=== PATIENT | male | born 1945 | race Caucasian/White ===

== ENCOUNTER → 2017-10-22 | Outpatient (CLI) | payer OTHER | LOC: ULTRA 10-12 16:43 | DX: M79.89 Other specified soft tissue disorders (principal); M79.662 Pain in left lower leg; M79.661 Pain in right lower leg; R60.9 Edema, unspecified ==

== ENCOUNTER → 2018-05-29 | Outpatient (CLI) | payer OTHER ==
--- NOTE | 2018-05-29 12:28 | EXE ---
[facility] [place] [address] STRESS ECHOCARDIOGRAM Name: VIVIENNE DIXON JR Room #: REG HERMELINDO [place]#: [id number] Admission: 05/29/18 Attend Phys: Milan Carr, Discharge: Date of : 49 Date of Service: 05/29/18 1228 Report #: [id number] THIS REPORT FOR: //name// APPROVED REPORT Study performed: 05/29/2018 11:08:05 Exam: Stress Echocardiogram Indication: CAD s/p CABG, Hypertension, Hyperlipidemia Patient Location: Out-Patient Stress Nurse: Starr Walden RN Room #: Echo lab 2 Status: routine Ht: 6 ft 1 in HR: 56 bpm BP: 134/76 mmHg Rhythm: Bradycardia Medical History Medical History: CAD s/p CABG, HTN, Hyperlipidemia Cardiac Risk Factors: FHX of CAD, HTN, Hyperlipidemia Previous Cardiac Procedures: CABG Exercise History: Indeterminate Procedure The patient underwent an Exercise Stress Test using the Yoel Protocol. Blood pressure, heart rate, and EKG were monitored. An Echocardiogram was performed by respiratory technician in four stages in quad fashion. At peak stress, four selected images were obtained and placed side by side with resting images for comparison. Stress Test Details Stress Test: Exercise stress testing was performed using a Yoel protocol. HR Resting HR: 56 bpm Max Heart Rate (APMHR): 149 bpm Max HR Achieved: 109 bpm Target HR (85% APMHR): 126 bpm % of APMHR: 73 Recovery HR: 74 bpm HR response to stress: Normal HR response to stress BP Resting BP: 134/76 mmHg Max BP: 172/60 mmHg Recovery BP: 150/60 mmHg [facility] [address] [address] STRESS ECHOCARDIOGRAM Name: VIVIENNE DIXON Room #: REG [facility]#: [id number] Admission: 05/29/18 Attend Phys: Milan Carr, Discharge: Date of : 49 Date of Service: 05/29/18 1228 Report #: [id number] BP response to stress: Normal blood pressure response to stress. ECG Resting ECG: Sinus Rhythm Stress ECG: Sinus Tachycardia Recovery ECG: Sinus Rhythm Clinical Reason for Termination: Maximal effort Exercise duration: 6 min 59 sec Highest Stage Achieved: Stage 3: 3.4 mph at 14% grade. Exercise capacity: 9.3 METs Overall Exercise Capacity for Age: Average Stress ECG Conclusion 1. Subjectively negative for ischemia 2. Electrocardiographically negative for ischemia at this heart rate and double product although patient heart rate did not achieve statistical significance for a diagnostic study Pre-Stress Echo The resting Echocardiogram showed normal left ventricular contractility with an estimated Ejection Fraction of about 50-55%. Post-Stress Echo The stress Echocardiogram showed normal left ventricular contractility with an estimated Ejection Fraction of about 60-65%. Clinical Normal augmentation of myocardial wall segments using a 17 segment model. Conclusion Clinical Response: Non-ischemic Exercise Capacity: Average Stress ECG Response: Indeterminant 1. No wall motion noted at this heart rate and double product 2. Inadequate heart rate response for a that statistically significant diagnostic study Other Information Study Quality: Adequate <Conclusion> 1. No wall motion noted at this heart rate and double product [facility] [address] [place] [address] STRESS ECHOCARDIOGRAM Name: VIVIENNE DIXON [id number] Admission: 05/29/18 Attend Phys: Milan Carr, Discharge: Date of : 49 Date of Service: 05/29/18 1228 Report #: [id number] 2. Inadequate heart rate response for a that statistically significant diagnostic study <ELECTRONICALLY SIGNED> By: Ken Swift MD 05/29/18 1228 27 Ken Swift MD /INF
== END ==
LOC: CV 06:54
DX: I25.10 Atherosclerotic heart disease of native coronary artery without angina pectoris (principal); I10 Essential (primary) hypertension; E78.5 Hyperlipidemia, unspecified; Z95.1 Presence of aortocoronary bypass graft